=== PATIENT | female | born 1965 | race American Indian/Alaskan Native ===

== ENCOUNTER 2018-05-13 16:41 | Emergency (ER) | payer MEDICARE, MEDICAID ==
[2018-05-13 16:44] VITALS: BMI 44.2
[2018-05-13 17:02] VITALS: BP 147/98
[2018-05-13] MEDS ORDERED: Promethazine/Cod 6.25mg-10mg/5ml Syr UD PO STA (17:17)
--- NOTE | 2018-05-13 17:20 | ED PDOC ---
Arrival/HPI - General Chief Complaint: ENT Problem Time Seen by Provider: 05/13/18 17:10 Historian: Patient - History of Present Illness Narrative History of Present Illness (Text): 05/13/18 17:17 52 year old female, whose past medical history includes hypertension, hyperlipidemia, and borderline diabetes, who presents to emergency department complaining of cough, sore throat, ear pain, and body aches x 5 days. Patient notes associated difficulty swallowing. Patient denies any fevers, chills, chest pain, shortness of breath, abdominal pain, nausea, vomiting, diarrhea, back pain, neck pain, headache, dizziness, or any other complaint. PMD: Dr. Wheat Symptom Onset: Gradual Symptom Course: Unchanged Activities at Onset: Light Context: Home Past Medical History - Provider Review Nursing Documentation Reviewed: Yes - Infectious Disease Hx of Infectious Diseases: None - Reproductive Menopause: Yes - Cardiac Hx Cardiac Disorders: Yes Hx Hypertension: Yes - Pulmonary Hx Respiratory Disorders: Yes Hx Asthma: Yes - Neurological Hx Neurological Disorder: No - HEENT Hx HEENT Disorder: No - Renal Hx Renal Disorder: No - Endocrine/Metabolic Hx Endocrine Disorders: Yes Hx Diabetes Mellitus Type 2: Yes Hx Hyperthyroidism: Yes Hx Hypothyroidism: Yes - Hematological/Oncological Hx Blood Disorders: No - Integumentary Hx Dermatological Disorder: No - Musculoskeletal/Rheumatological Hx Musculoskeletal Disorders: No - Gastrointestinal Hx Gastrointestinal Disorders: No - Genitourinary/Gynecological Hx Genitourinary Disorders: No - Psychiatric Hx Psychophysiologic Disorder: No Hx Substance Use: No - Surgical History Hx Cholecystectomy: Yes Hx Tonsillectomy: Yes - Anesthesia Hx Anesthesia: Yes Hx Anesthesia Reactions: No Hx Malignant Hyperthermia: No - Suicidal Assessment Feels Threatened In Home Enviroment: No Family/Social History - Physician Review Nursing Documentation Reviewed: Yes Family/Social History: Unknown Family HX Smoking Status: Never Smoked Hx Alcohol Use: No Hx Substance Use: No Allergies/Home Meds Allergies/Adverse Reactions: Allergies No Known Allergies Allergy (Unverified 11/22/12 14:58) Home Medications: Home Meds Medication Instructions Recorded Confirmed Atorvastatin [Lipitor] 1 tab PO DAILY 11/07/16 11/07/16 Levothyroxine [Synthroid] 1 tab PO DAILY 11/07/16 11/07/16 Lisinopril [Prinivil] 1 tab PO DAILY 11/07/16 11/07/16 hydroCHLOROthiazide [Hydrodiuril] 1 tab PO DAILY 11/07/16 11/07/16 metFORMIN [glucOPHAGE] 1 tab PO BID 11/07/16 11/07/16 Review of Systems - Physician Review All systems were reviewed & negative as marked: Yes - Review of Systems Constitutional: Normal Eyes: Normal ENT: Sore Throat, Other (ear pain) Respiratory: Cough. absent: SOB Cardiovascular: Normal. absent: Chest Pain Gastrointestinal: Normal. absent: Abdominal Pain, Vomiting Genitourinary Female: Normal. absent: Dysuria, Frequency Musculoskeletal: Normal. absent: Back Pain, Neck Pain Skin: Normal. absent: Rash Neurological: Normal Endocrine: Normal Hemo/Lymphatic: Normal Psychiatric: Normal Physical Exam Vital Signs Reviewed: Yes Vital Signs Temp Pulse Resp BP Pulse Ox 05/13/18 16:42 99 F 72 18 147/98 H 97 Temperature: Afebrile Blood Pressure: Normal Pulse: Regular Respiratory Rate: Normal Appearance: Positive for: Well-Appearing, Non-Toxic, Comfortable Pain Distress: None Mental Status: Positive for: Alert and Oriented X 3 - Systems Exam Head: Present: Atraumatic, Normocephalic Pupils: Present: PERRL Extroacular Muscles: Present: EOMI Conjunctiva: Present: Normal Mouth: Present: Moist Mucous Membranes Neck: Present: Normal Range of Motion Respiratory/Chest: Present: Clear to Auscultation, Good Air Exchange. No: Respiratory Distress, Accessory Muscle Use Cardiovascular: Present: Regular Rate and Rhythm, Normal S1, S2. No: Murmurs Abdomen: No: Tenderness, Distention, Peritoneal Signs Back: Present: Normal Inspection Upper Extremity: Present: Normal Inspection. No: Cyanosis, Edema Lower Extremity: Present: Normal Inspection. No: Edema Neurological: Present: GCS=15, CN II-XII Intact, Speech Normal Skin: Present: Warm, Dry, Normal Color. No: Rashes Psychiatric: Present: Alert, Oriented x 3, Normal Insight, Normal Concentration Medical Decision Making ED Course and Treatment: 05/13/18 17:21 Impression: 52 year old female presents to the emergency department complaining of cough, sore throat, body aches, and ear pain x 5 days. Differential Diagnosis included but are not limited to: viral pharyngitis vs. influenza Plan: -- Flu swab -- Strep test -- CXR -- Reassess and disposition Progress Notes: 05/13/18 19:02 CXR shows possible infiltrate. Will tx with Levaquin and discharge pt home with PMD f/u. She was advised to return if symptoms worsen or any other concern. - Scribe Statement The provider has reviewed the documentation as recorded by the Scribe Adeline Rowland All medical record entries made by the Scribe were at my direction and personally dictated by me. I have reviewed the chart and agree that the record accurately reflects my personal performance of the history, physical exam, medical decision making, and the department course for this patient. I have also personally directed, reviewed, and agree with the discharge instructions and disposition. Disposition/Present on Arrival - Present on Arrival Any Indicators Present on Arrival: No History of DVT/PE: No History of Uncontrolled Diabetes: No Urinary Catheter: No History of Decub. Ulcer: No History Surgical Site Infection Following: None - Disposition Have Diagnosis and Disposition been Completed?: Yes Diagnosis: Pneumonia Disposition: HOME/ ROUTINE Disposition Time: 19:02 Patient Plan: Discharge Patient Problems: Current Active Problems Problem Status Onset Pneumonia Acute Condition: IMPROVED Discharge Instructions (ExitCare): Pneumonia in Adults Additional Instructions: DAVID WILKINSON, thank you for letting us take care of you today. Your provider was Pete Lawson DO and you were treated for Pneumonia. The emergency medical care you received today was directed at your acute symptoms. If you were prescribed any medication, please fill it and take as directed. It may take several days for your symptoms to resolve. Return to the Emergency Department if your symptoms worsen, do not improve, or if you have any other problems. Please contact your doctor or call one of the physicians/clinics you have been referred to that are listed on the Patient Visit Information form that is included in your discharge packet. Bring any paperwork you were given at discharge with you along with any medications you are taking to your follow up visit. Our treatment cannot replace ongoing medical care by a primary care provider outside of the emergency department. Thank you for allowing the [facility] team to be part of your care today. If you had an X-Ray or CT scan: A Radiologist will review the ED reading if any change in treatment is needed we will contact you. If you had a blood, urine, or wound culture: It will take several days for the results, if any change in treatment is needed we will contact you. If you had an STI test: It will take 48 hours for the results. Please call after 1 week if you have not heard back. Prescriptions: Benzonatate [Tessalon Perles] 100 mg PO Q8 PRN #30 sgl PRN Reason: Cough Levofloxacin [Levaquin] 750 mg PO DAILY #4 tablet Promethazine/Codeine [Phenergan/Codeine Oral Syrup] 5 ml PO Q6 PRN #1 PRN Reason: Cough Referrals: [facility], [Non-Staff] - Follow up with primary Forms: [employer] (German), WORK NOTE
[2018-05-13 17:56] LABS: INFLUENZA A B NEGATIVE FOR FLU A/B (NEGATIVE)
[2018-05-13] MEDS ORDERED: levoFLOXacin 750 MG TAB PO STA (18:53)
[2018-05-13 19:21] VITALS: PULSE 76; RESP 16; TEMP 98; O2SAT 99
--- NOTE | 2018-05-14 08:59 | RAD ---
Date of service: 05/13/2018 HISTORY: cough r/o pna COMPARISON: No prior. TECHNIQUE: Chest PA and lateral FINDINGS: LUNGS: No active pulmonary disease. PLEURA: No significant pleural effusion identified. No pneumothorax apparent. CARDIOVASCULAR: No aortic atherosclerotic calcification present. Normal cardiac size. No pulmonary vascular congestion. OSSEOUS STRUCTURES: No significant abnormalities. VISUALIZED UPPER ABDOMEN: Normal. OTHER FINDINGS: None. IMPRESSION: No radiographic evidence of pneumonia
== END 2018-05-13 19:21 | disposition home or self-care (01) ==
LOC: ED 16:41
DX: J18.9 Pneumonia, unspecified organism (principal); I10 Essential (primary) hypertension; E78.5 Hyperlipidemia, unspecified

== ENCOUNTER 2018-08-07 08:57 | Outpatient (CLI) | payer MEDICARE | END 2018-08-07 08:58 | disposition home or self-care (01) | LOC: LAB 08:57 ==

== ENCOUNTER 2018-08-09 09:32 | Outpatient (CLI) | payer MEDICARE | END 2018-08-09 09:33 | disposition home or self-care (01) | LOC: RAD 09:32 | DX: Z12.31 Encounter for screening mammogram for malignant neoplasm of breast (principal) ==

== ENCOUNTER 2018-08-10 09:57 | Outpatient (CLI) | payer MEDICARE | END 2018-08-10 09:58 | disposition home or self-care (01) | LOC: RAD 09:57 ==

== ENCOUNTER 2018-08-14 07:59 | Outpatient (CLI) | payer MEDICARE | END 2018-08-14 08:00 | disposition home or self-care (01) | LOC: RAD 07:59 ==

== ENCOUNTER 2018-08-21 12:27 | Emergency (ER) | payer MEDICARE, MEDICAID ==
[2018-08-21 12:28] VITALS: BMI 44.2
[2018-08-21 12:41] VITALS: BP 135/87; PULSE 76; RESP 20; TEMP 98.7
--- NOTE | 2018-08-21 13:05 | ED PDOC ---
Arrival/HPI - General Chief Complaint: Shortness Of Breath Time Seen by Provider: 08/21/18 12:30 Historian: Patient - History of Present Illness Narrative History of Present Illness (Text): 08/21/18 13:01 52-year-old female with past medical history of hypertension, asthma, diabetes presents to the emergency room complaining of wheezing, chest tightness, cough, runny nose and nasal congestion for the past 2 days. Patient states that she felt as if her asthma was acting up this morning therefore she gave herself a nebulized treatment however she still felt that she was wheezing prompting ER visit. Otherwise reports no fever, chills, headache, chest pain, nausea, vomiting, back pain, recent travel, sick contacts. Patient has no other complaints. PMD Jonathan Past Medical History - Infectious Disease Hx of Infectious Diseases: None - Reproductive Menopause: Yes - Cardiac Hx Cardiac Disorders: Yes Hx Hypertension: Yes - Pulmonary Hx Respiratory Disorders: Yes Hx Asthma: Yes - Neurological Hx Neurological Disorder: No - HEENT Hx HEENT Disorder: No - Renal Hx Renal Disorder: No - Endocrine/Metabolic Hx Endocrine Disorders: Yes Hx Diabetes Mellitus Type 2: Yes Hx Hyperthyroidism: Yes Hx Hypothyroidism: Yes - Hematological/Oncological Hx Blood Disorders: No - Integumentary Hx Dermatological Disorder: No - Musculoskeletal/Rheumatological Hx Musculoskeletal Disorders: No - Gastrointestinal Hx Gastrointestinal Disorders: No - Genitourinary/Gynecological Hx Genitourinary Disorders: No - Psychiatric Hx Psychophysiologic Disorder: No Hx Substance Use: No - Surgical History Hx Cholecystectomy: Yes Hx Tonsillectomy: Yes - Anesthesia Hx Anesthesia: Yes Hx Anesthesia Reactions: No Hx Malignant Hyperthermia: No - Suicidal Assessment Feels Threatened In Home Enviroment: No Family/Social History Family/Social History: No Known Family HX Smoking Status: Never Smoked Hx Alcohol Use: No Hx Substance Use: No Allergies/Home Meds Allergies/Adverse Reactions: Allergies No Known Allergies Allergy (Unverified 11/22/12 14:58) Home Medications: Home Meds Medication Instructions Recorded Confirmed RX: Atorvastatin [Lipitor] 1 tab PO DAILY 11/07/16 11/07/16 RX: Levothyroxine [Synthroid] 1 tab PO DAILY 11/07/16 11/07/16 RX: Lisinopril [Prinivil] 1 tab PO DAILY 11/07/16 11/07/16 RX: hydroCHLOROthiazide 1 tab PO DAILY 11/07/16 11/07/16 [Hydrodiuril] RX: metFORMIN [glucOPHAGE] 1 tab PO BID 11/07/16 11/07/16 Review of Systems - Review of Systems Constitutional: absent: Fatigue, Fevers ENT: Rhinorrhea, Sinus Congestion. absent: Sore Throat Respiratory: SOB, Cough, Wheezing Cardiovascular: absent: Chest Pain, Palpitations Gastrointestinal: absent: Abdominal Pain, Nausea, Vomiting Musculoskeletal: absent: Arthralgias, Back Pain, Neck Pain Skin: absent: Rash, Skin Lesions Neurological: absent: Headache, Dizziness Physical Exam Vital Signs Temp Pulse Resp BP Pulse Ox 08/21/18 12:40 98.7 F 76 20 135/87 96 Temperature: Afebrile Blood Pressure: Normal Pulse: Regular Respiratory Rate: Normal Appearance: Positive for: Well-Appearing, Non-Toxic, Comfortable Pain Distress: None Mental Status: Positive for: Alert and Oriented X 3 - Systems Exam Head: Present: Atraumatic, Normocephalic Pupils: Present: PERRL Extroacular Muscles: Present: EOMI Conjunctiva: Present: Normal Ears: Present: Normal, NORMAL TM Mouth: Present: Moist Mucous Membranes Pharnyx: Present: Normal. No: ERYTHEMA, EXUDATE Neck: Present: Normal Range of Motion Respiratory/Chest: Present: Good Air Exchange, Wheezes (+wheezing audible only when she coughs). No: Respiratory Distress, Accessory Muscle Use, Rales, Rhonchi Cardiovascular: Present: Regular Rate and Rhythm, Normal S1, S2. No: Murmurs Back: Present: Normal Inspection Upper Extremity: Present: Normal Inspection. No: Cyanosis, Edema Lower Extremity: Present: Normal Inspection. No: Edema Neurological: Present: GCS=15, CN II-XII Intact, Speech Normal Skin: Present: Warm, Dry, Normal Color. No: Rashes Psychiatric: Present: Alert, Oriented x 3, Normal Insight, Normal Concentration Medical Decision Making ED Course and Treatment: 08/21/18 13:06 Plan : - Duoneb x 2 - Solumedrol IM EKG : NSR at 66 bpm, +flipped T waves in V3-V6, which is not new and seen in prior EKG 03/2013. On reevaluation, patient reports improvement of symptoms, denies any CP or SOB. On exam, patient remains awake alert and oriented 3 in no acute distress. Neck is supple, lungs are clear to auscultation, cardiac regular rate and rhythm. Advised to follow up with primary care physician in 1-2 days without fail. Advised to take medication as prescribed. Return to the emergency room at any time for any new or worsening symptoms. Patient states she fully agrees with and understands discharge instructions. States that she agrees with the plan and disposition. Verbalized and repeated discharge instructions and plan. I have given the patient opportunity to ask any additional questions. - Medication Orders Current Medication Orders: Albuterol/Ipratropium (Duoneb 3 Mg/0.5 Mg (3 Ml) Ud) 3 ml IH Q15M MANUELITO Stop: 08/21/18 13:16 Discontinued Medications Methylprednisolone (Solu-Medrol) 125 mg IM STAT STA Stop: 08/21/18 12:59 - PA / [employer] / Resident Statement /DO has reviewed & agrees with the documentation as recorded. Disposition/Present on Arrival - Present on Arrival Any Indicators Present on Arrival: No History of DVT/PE: No History of Uncontrolled Diabetes: No Urinary Catheter: No History of Decub. Ulcer: No History Surgical Site Infection Following: None - Disposition Have Diagnosis and Disposition been Completed?: Yes Diagnosis: Asthma, Upper respiratory infection, viral Disposition: HOME/ ROUTINE Disposition Time: 14:40 Patient Plan: Discharge Patient Problems: Current Active Problems Problem Status Onset Asthma Acute Upper respiratory infection, viral Acute Condition: IMPROVED Discharge Instructions (ExitCare): Asthma in Adults, Viral Upper Respiratory Infection, Adult (DC) Additional Instructions: Thank you for letting us take care of you today. You were treated for asthma, cough. The emergency medical care you received today was directed at your acute symptoms. If you were prescribed any medication, please fill it and take as directed. It may take several days for your symptoms to resolve. Return to the Emergency Department if your symptoms worsen, do not improve, or if you have any other problems. Please contact your doctor in 2 days for re-evaluation and follow up. Bring any paperwork you were given at discharge with you along with any medications you are taking to your follow up visit. Our treatment cannot replace ongoing medical care by a primary care provider (PCP) outside of the emergency department. Thank you for allowing the [facility] [employer] team to be part of your care today. Prescriptions: Albuterol 0.083% [Albuterol Sulfate 3 Ml] 3 ml IH Q4 #100 neb RX: predniSONE [predniSONE Tab] 40 mg PO DAILY #8 tab Forms: [employer] (Romanian), WORK NOTE
[2018-08-21] MEDS: Albuterol-Ipratrop 3 mg / 0.5 (3 ml) UD IH SCH ×2 (13:09→13:33)
[2018-08-21 13:11] VITALS: O2SAT 100
--- NOTE | 2018-08-21 21:00 | CARD ---
APPROVED REPORT Date of service: 08/21/2018 EKG Measurement Heart [id number] <Conclusion> Normal sinus rhythm ST & T wave abnormality, consider inferior ischemia ST & T wave abnormality, consider anterolateral ischemia Prolonged QT Abnormal ECG
== END 2018-08-21 15:14 | disposition home or self-care (01) ==
LOC: ED 12:27
DX: J45.909 Unspecified asthma, uncomplicated (principal); J06.9 Acute upper respiratory infection, unspecified; I10 Essential (primary) hypertension
CPT/HCPCS: 93005; 94640; 96372; 99284; J2930

== ENCOUNTER 2018-08-30 10:27 | Outpatient (CLI) | payer MEDICARE, MEDICAID | END 2018-08-30 10:28 | disposition home or self-care (01) | LOC: RAD 10:27 ==

== ENCOUNTER 2018-10-18 10:51 | Outpatient (CLI) | payer MEDICARE, MEDICAID | END 2018-10-18 10:52 | disposition home or self-care (01) | LOC: RAD 10:51 | DX: R22.30 Localized swelling, mass and lump, unspecified upper limb (principal) ==